=== PATIENT | female | born 1945 | race Native Hawaiian/Other Pacific Islander ===

== ENCOUNTER 2017-01-16 14:23 | Outpatient (CLI) | payer OTHER, BC | END 2017-01-16 19:38 | disposition home or self-care (01) | LOC: LABW 14:23 | DX: K64.0 First degree hemorrhoids (principal) | CPT/HCPCS: 82272 ==

== ENCOUNTER 2018-01-24 11:26 | Outpatient (CLI) | payer OTHER, BC | END 2018-01-24 23:13 | disposition home or self-care (01) | LOC: LABW 11:26 | DX: K64.0 First degree hemorrhoids (principal) | CPT/HCPCS: 82272 ==

== ENCOUNTER 2019-02-12 10:34 | Outpatient (CLI) | payer OTHER | END 2019-02-12 22:32 | disposition home or self-care (01) | LOC: LABW 10:34 | DX: K64.0 First degree hemorrhoids (principal) | CPT/HCPCS: 82272 ==

== ENCOUNTER 2019-09-15 10:08 | Outpatient (CLI) | payer OTHER | END 2019-09-15 21:23 | disposition home or self-care (01) | LOC: MRI 10:08 | DX: M54.16 Radiculopathy, lumbar region (principal); M25.552 Pain in left hip ==

== ENCOUNTER 2020-02-18 09:26 | Outpatient (CLI) | payer OTHER | END 2020-02-18 18:59 | disposition home or self-care (01) | LOC: MAMMO 09:26 | PROVIDERS: ATTEND Internal Medicine | DX: Z12.31 Encounter for screening mammogram for malignant neoplasm of breast (principal); N64.59 Other signs and symptoms in breast | CPT/HCPCS: G0279 ==

== ENCOUNTER 2020-06-22 10:05 | Day surgery (SDC) | payer OTHER ==
[2020-06-16 13:28] LABS: PLATELET COUNT 291 K/uL (152-353)
[~2020-06-22] VITALS: Ht 30.5 cm; Wt 0.5 kg
== END 2020-06-22 13:02 | disposition home or self-care (01) ==
LOC: OR 10:05
PROVIDERS: ATTEND Internal Medicine Gastroenterology
PROC: 0DBM8ZZ Excision of Descending Colon, Via Natural or Artificial Opening Endoscopic (ICD-10-PCS; principal; 2020-06-22)
DX: K63.5 Polyp of colon (principal); K57.30 Diverticulosis of large intestine without perforation or abscess without bleeding; K64.8 Other hemorrhoids; Z80.0 Family history of malignant neoplasm of digestive organs; Z85.3 Personal history of malignant neoplasm of breast; K59.09 Other constipation; Z20.822 Contact with and (suspected) exposure to COVID-19
CPT/HCPCS: 80053; 85027; 87635; J2001; J2704; U0003

== ENCOUNTER 2021-06-30 10:45 | Outpatient (CLI) | payer OTHER | END 2021-06-30 20:47 | disposition home or self-care (01) | LOC: MAMMO 10:45 | PROVIDERS: ATTEND Internal Medicine | DX: Z12.31 Encounter for screening mammogram for malignant neoplasm of breast (principal); N64.59 Other signs and symptoms in breast | CPT/HCPCS: G0279 ==

== ENCOUNTER 2022-07-20 13:52 | Outpatient (CLI) | payer OTHER | END 2022-07-20 19:02 | disposition home or self-care (01) | LOC: MAMMO 13:52 | PROVIDERS: ATTEND Internal Medicine | DX: N64.59 Other signs and symptoms in breast (principal) | CPT/HCPCS: G0279 ==